=== PATIENT | female | born 1975 | race Caucasian/White ===

== ENCOUNTER → 2019-09-09 | Day surgery (SDC) | payer OTHER ==
[~2019-09-09] MED LIST: BALANCED SALT SOLN (OPTH) 15 ML BTL IO ONE; BUPIVACAINE HC 0.75% PF 10ML VIAL INJ ONE; CEFTIN PO; FENTANYL CITRATE/PF 100MCG/2 ML INJ ONE; LIDOCAINE 2% /EPINEPHRINE 20 ML SDV INJ ONE; LIDOCAINE HCL 1% 30ML-PF VIAL ONE; LO LOESTRIN FE1 EACH PO; MIDAZOLAM HCL 2 MG/2 ML VIAL ONE; MITOMYCIN-PF OPTH SYRINGE 0.3 MG/ML OP ONE; NEOMYCIN/POLYMYXIN/DEX (OPTH) 3.5 GM TUBE ONE; POVIDONE IODINE 5% (OPTH) 30 ML BTL ONE; [UNRECOGNIZED DRUG - OTHER] PO; tylenol PO
[2019-09-09 16:20] VITALS: BP 108/77
--- OUTSIDE RECORDS SUMMARY | 2019-09-12 13:20 | XMS REPORT ---
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 Allergies, Adverse Reactions, Alerts This patient has no known allergies or adverse reactions. Medications This patient has no known medications. Results Test Description Test Time Test Comments Text Results Atomic Results Result Comments CT ABDOMEN/PELVIS WO [place] [address] Patient Name: DIPESH JEFFERY MR #: [id number] : 1975 Age/Sex: 42/F Req #: [id number] Adm Physician: Ordered by: STEVE HERNANDEZ MD Report #: [id number] Location: ER Room/Bed: Procedure: [id number] CT/CT ABDOMEN/PELVIS WO Exam Date: Exam Time: REPORT STATUS: Signed EXAM: CT ABDOMEN AND PELVIS without IV CONTRAST DATE: 06/27/2017 4:08 AM Time stamp on Exam: 0429 hours INDICATION: Flank pain, UTI, hematuria, severe right back pain COMPARISON: None TECHNIQUE: The abdomen and pelvis were scanned using a multidetector helical scanner. Coronal and sagittal reformations were obtained. Renal stone protocol performed. IV Contrast: None Oral Contrast: None CTDIvol has been reviewed. It is below the limits set by the Radiation Protocol Committee (RPC). FINDINGS: LOWER THORAX: No consolidations. Partially visualized breast implants. LIVER: No masses BILIARY: The gallbladder is unremarkable. No ductal dilation. SPLEEN: No masses PANCREAS: No masses ADRENALS: No nodules KIDNEYS: Mild prominence of the right collecting system without stone visualized. Normal appearance of the left kidney. GI TRACT: No distention, wall thickening or evidence of obstruction. Normal appendix. VESSELS: Unremarkable PERITONEUM/RETROPERITONEUM: No free air or fluid LYMPH NODES: No lymphadenopathy REPRODUCTIVE ORGANS: Unremarkable BLADDER: Unremarkable SOFT TISSUES: Unremarkable BONES: No suspicious bone lesions. IMPRESSION: No nephroureterolithiasis. Mild prominence of the right collecting system suggests recently passed stone and/or infection. Signed by: Dr. Joleen Vann M.D. on 06/27/2017 4:55 AM Dictated By: JOLEEN VANN MD 4 Transcribed By: REJI on 06/27/17454 COPY TO: STEVE HERNANDEZ MD
--- NOTE | 2019-09-16 11:43 | Operative Report ---
DATE OF PROCEDURE: 09/09/2019 SURGEON: Omar Meier MD PREOPERATIVE DIAGNOSIS: Large nasal pterygium, left eye. POSTOPERATIVE DIAGNOSIS: Large nasal pterygium, left eye. PROCEDURE: 1. Pterygium excision, left eye, nasal. 2. Amniotic membrane graft placement in the left eye, nasal. 3. Superficial keratectomy, left eye, nasal. 4. Mitomycin-C 0.25 mg/mL for 60 seconds, left eye, nasal. ANESTHESIA: MAC. COMPLICATIONS: None. DESCRIPTION OF PROCEDURE: The patient was taken to the operating room, where she received tetracaine drops placed on the eye. The patient's eye was prepped and draped in usual sterile ophthalmic way. A lid speculum was placed in the left eye. A 6-0 sterile stay suture was placed temporally at the limbus and the pterygium was localized. The pterygium was then marked with a marking pen and 0.2 mL of lidocaine with epinephrine were injected to the pterygium. The pterygium was then removed using 0.12 forceps and Nori scissors, this was then sent to pathology. A bur was used to perform a superficial keratectomy and removed the residual debris from the cornea. Once this was done, and mitomycin was soaked in the cottonoid 0.025 mg/mL placed at the edge of the conj for 60 seconds. Copious amounts of BSS solution were used to irrigate this off after the 60 seconds. The amniotic membrane graft measured 10 x 14 mm. The graft was secured using fibrin and thrombin glue. Excess tissue and glue were removed using 0.12 forceps. Prior to this, cautery was used to control any bleeding. Once this was concluded, the patient had Maxitrol ointment, patch, and Kwan shield placed on the eye. The patient tolerated the procedure well and will be see in my office tomorrow. The serial number for the amniotic membrane is [id number]. Omar Meier MD SES/MODL /[id number]
== END | disposition home or self-care (01) ==
LOC: OR 12:11
PROVIDERS: ATTEND Ophthalmology
DX: H11.052 Peripheral pterygium, progressive, left eye (principal); I73.00 Raynaud's syndrome without gangrene; M26.609 Unspecified temporomandibular joint disorder, unspecified side; Z87.891 Personal history of nicotine dependence
CPT/HCPCS: 65426; 81025; 88304; J2001; J2250; J3010; J7315; V2790